=== PATIENT | male | born 1985 | race Caucasian/White ===

== ENCOUNTER 2017-01-23 23:32 | Emergency (ER) | payer MEDICAID ==
[~2017-01-23] VITALS: Ht 175.3 cm; Wt 93.4 kg
[2017-01-23 23:35] VITALS: BP_SYST 154
[2017-01-24 01:15] VITALS: BP_SYST 139
== END 2017-01-24 01:15 | disposition home or self-care (01) ==
LOC: SED 23:32
DX: S90.121A Contusion of right lesser toe(s) without damage to nail, initial encounter (principal); Z91.011 Allergy to milk products; W22.8XXA Striking against or struck by other objects, initial encounter; Y93.01 Activity, walking, marching and hiking; Y92.89 Other specified places as the place of occurrence of the external cause; Y99.8 Other external cause status
CPT/HCPCS: 99284

== ENCOUNTER 2017-07-27 10:58 | Emergency (ER) | payer MEDICAID ==
[~2017-07-27] VITALS: Ht 172.7 cm; Wt 86.2 kg
[2017-07-27 11:08] VITALS: BP_SYST 140
[2017-07-27] MEDS ORDERED: NACL 0.9% 1,000 ML IV ONE (11:28)
[2017-07-27] MEDS ORDERED: KETOROLAC TROMETHAMINE 30 MG VIAL IVP ONE (11:30)
[2017-07-27] MEDS ORDERED: KETOROLAC TROMETHAMINE 30 MG VIAL ONE (11:34)
[2017-07-27 11:52] LABS: BASOPHILS % (AUTO) 0.3 % (0.0-2.0); EOSINOPHILS # (AUTO) 0.1 K/uL (0.0-0.4); EOSINOPHILS % (AUTO) 2.7 % (0.0-4.0); HEMATOCRIT 42.1 % (36-54); HEMOGLOBIN 14.4 g/dL (14.0-18.0); LYMPHOCYTES # (AUTO) 0.7 K/uL (1.0-5.5); LYMPHOCYTES % (AUTO) 14.2 % (20.5-51.5); MEAN CORPUSCULAR HEMOGLOBIN 29 pg (27-31); MEAN CORPUSCULAR HGB CONC 34 % (32-36); MEAN CORPUSCULAR VOLUME 85 fL (79.0-98.0); MONOCYTES # (AUTO) 0.4 K/uL (0.0-1.0); NEUTROPHILS # (AUTO) 3.6 K/uL (1.8-7.7); NEUTROPHILS % (AUTO) 74.8 % (40.0-70.0); PLATELET COUNT (AUTO) 214 K/uL (130-430); RED BLOOD CELL COUNT(AUTO) 4.99 MIL/uL (4.2-6.2); RED CELL DISTRIBUTION WIDTH 12.1 % (9.0-15.0); WHITE BLOOD COUNT (AUTO) 4.8 K/uL (4.8-10.8)
[2017-07-27 12:10] LABS: CALCIUM 9.1 mg/dL (8.4-11.0); CREATININE 0.96 mg/dL (0.55-1.30)
[2017-07-27 12:12] LABS: ALBUMIN 4.2 g/dL (3.4-4.8); TOTAL BILIRUBIN 0.4 mg/dL (0.0-1.0)
[2017-07-27 12:54] VITALS: BP_SYST 134
== END 2017-07-27 12:54 | disposition home or self-care (01) ==
LOC: SED 10:58
DX: A08.4 Viral intestinal infection, unspecified (principal); Z91.011 Allergy to milk products
CPT/HCPCS: 36415; 80053; 85025; 96361; 96374; 99284; J1885; J7030

== ENCOUNTER 2017-10-26 12:21 | Emergency (ER) | payer MEDICAID ==
[~2017-10-26] VITALS: Ht 175.3 cm; Wt 92.5 kg
[2017-10-26 12:34] VITALS: BP_SYST 150
--- NOTE | 2017-10-26 12:38 | NUR ---
During triage, pt contacted PMD and will follow up with him today with appt at 1430. Advised pt to come back if needed. Was seen at [facility] for lower leg injury yesterday, AAOx4, ambulatory on crutches, splint in place. No acute distress. ER MD notified. LWBS at this time.
== END 2017-10-26 12:38 | disposition left against medical advice (07) ==
LOC: SED 12:21
DX: M79.604 Pain in right leg (principal); Z53.21 Procedure and treatment not carried out due to patient leaving prior to being seen by health care provider

== ENCOUNTER 2017-11-30 17:56 | Emergency (ER) | payer MEDICAID ==
[~2017-11-30] VITALS: Ht 175.3 cm; Wt 95.3 kg
[2017-11-30 18:00] VITALS: BP_SYST 157
[2017-11-30] MEDS ORDERED: DIPH-TET-PERTUS Vaccine 0.5 ML VIAL (ADACEL) I.M. ONE (19:30)
[2017-11-30 20:53] VITALS: BP_SYST 141
== END 2017-11-30 19:32 | disposition home or self-care (01) ==
LOC: SED 17:56
DX: S91.332A Puncture wound without foreign body, left foot, initial encounter (principal); S91.331A Puncture wound without foreign body, right foot, initial encounter; Z91.011 Allergy to milk products; X58.XXXA Exposure to other specified factors, initial encounter; Y93.89 Activity, other specified; Y92.89 Other specified places as the place of occurrence of the external cause; Y99.8 Other external cause status
CPT/HCPCS: 90715; 99283

== ENCOUNTER 2018-06-19 07:19 | Emergency (ER) | payer MEDICAID ==
[~2018-06-19] VITALS: Ht 175.3 cm; Wt 92.5 kg
[2018-06-19 07:26] VITALS: BP_SYST 132
--- NOTE | 2018-06-19 07:34 | NUR ---
DR SALAZAR AT BEDSIDE FOR EVALUATION
--- NOTE | 2018-06-19 07:35 | NUR ---
Pt presents to ER c/o productive cough w/ yellow sputum and congestion x 3 days. Pt denies any other symptoms at this time. Pt not in acute distress, speaking full sentences, ambulatory, AOX4.
--- NOTE | 2018-06-19 07:40 | NUR ---
ER Dr. Ferguson at bedside examining patient.
[2018-06-19 07:58] VITALS: BP_SYST 127
--- NOTE | 2018-06-19 07:58 | NUR ---
Patient given written and verbal discharge instructions and verbalizes understanding. ER MD discussed with patient the results and treatment provided. Patient in stable condition. ID arm band removed Rx of SUDAFED, TYLENOL WITH CODEINE, ZITHROMAX given. Patient educated on pain management and to follow up with PMD. Pain Scale 0/10. Opportunity for questions provided and answered. Medication side effect fact sheet provided.
== END 2018-06-19 07:58 | disposition home or self-care (01) ==
LOC: SED 07:19
DX: J20.9 Acute bronchitis, unspecified (principal); Z91.011 Allergy to milk products
CPT/HCPCS: 99283

== ENCOUNTER 2019-08-17 08:39 | Emergency (ER) | payer MEDICAID ==
[~2019-08-17] VITALS: Ht 175.3 cm; Wt 90.7 kg
[2019-08-17 08:50] VITALS: BP_SYST 160
--- NOTE | 2019-08-17 09:00 | NUR ---
Patient to ER bed 7 to gown for evaluation. Side rails up.
[2019-08-17] MEDS ORDERED: DIPHENOXYLATE HCL/ATROP SULF 2.5 MG TAB PO ONE (09:15)
--- NOTE | 2019-08-17 09:20 | NUR ---
ER at bedside examining patient.
--- NOTE | 2019-08-17 09:23 | NUR ---
pt arrives from home w/ c/o diarrhea since yesterday. Pt took oxc med w/out relief
--- NOTE | 2019-08-17 09:30 | NUR ---
medicated the pt w/ Lomotil per MD order.
[2019-08-17 09:44] VITALS: BP_SYST 141
--- NOTE | 2019-08-17 09:45 | NUR ---
Patient given written and verbal discharge instructions and verbalizes understanding. ER MD discussed with patient the results and treatment provided. Patient in stable condition. ID arm band removed. Rx of LOMOTIL given. Patient educated on pain management and to follow up with PMD. Pain Scale 0/10. Opportunity for questions provided and answered. Medication side effect fact sheet provided.
== END 2019-08-17 09:45 | disposition home or self-care (01) ==
LOC: SED 08:39
DX: K52.9 Noninfective gastroenteritis and colitis, unspecified (principal); Z91.011 Allergy to milk products
CPT/HCPCS: 99283